=== PATIENT | male | born 1995 | race African-American/Black ===

== ENCOUNTER 2016-04-07 08:58 | Emergency (ER) | payer OTHER ==
[2016-04-07] MEDS ORDERED: NORCO, ANEXSIA 5/325MG TABLET (HYDROcodone/ACETAMINOPHEN) As Ordered ONE (09:16)
--- NOTE | 2016-04-07 09:46 | REP ---
Clinical: Trauma. Technique: AP, lateral, bilateral oblique views right foot. Findings: The osseous structures and joint spaces are intact and normal. There is no evidence for acute fracture or dislocation. Surrounding soft tissues are unremarkable. No subcutaneous emphysema or radiodense foreign body. Impression: Normal examination. No acute fracture or dislocation. Signed by Orlando Solis MD 04/07/2016 09:37 A
--- NOTE | 2016-04-07 10:10 | EDDOCDS ---
Physician Documentation [facility] Name: Osmar Pinto Age: 20 yrs Sex: Male : 1995 Arrival Date: 04/07/2016 Time: 08:58 Bed PR Private MD: OKPRINCE RINCON Disposition: 04/07/16 10:02 Discharged to Home/Self Care. Impression: Contusion of right foot. - Condition is Stable. - Discharge Instructions: Foot Contusion. - Prescriptions for Naprosyn 500 mg Oral Tablet - take 1 tablet by ORAL route 2 times per day take with food; 30 tablet. - Medication Reconciliation form. - [facility]: Tomorrow; Reason: Wound/Symptom Recheck, Recheck today's complaints, Worsening of conditions, Continuance of care. - Problem is new. - Symptoms have improved. Historical: - Allergies: No known drug Allergies; - Home Meds: 1. none - PMHx: none; - PSHx: none; - Social history: Smoking status: Patient states was never smoker of tobacco. No barriers to communication noted, The patient speaks fluent Sinhala. - Family history: Not pertinent. - : The pt / caregiver states he / she is not on anticoagulants. Home medication list is obtained from the patient. - Exposure Risk Screening:: None identified. Vital Signs: 04/07 09:00 BP 151 / 82; Pulse 85; Resp 18; Temp 97.8(O); Pulse Ox 98% on R/A; Weight 102.06 kg / ct3 225 lbs (R); Height 6 ft. 0 in. (182.88 cm) (R); Pain 5/10; 09:00 Body Mass Index 30.52 (102.06 kg, 182.88 cm) ct3 MDM: 09:13 HYDROcodone-acetaminophen 5 mg-325 mg 1 tabs PO once ordered. cc10 09:14 Foot, Complete: car over foot Ordered. EDMS 09:36 Financial registration complete. mm15 10:06 [facility] Payment Agreement was scanned into [employer] and attached to record. mm15 Administered Medications: 09:20 Drug: HYDROcodone-acetaminophen 1 tabs [hydrocodone 5 mg-acetaminophen 325 mg tablet (1 kcs tabs)] Route: PO; 09:20 Follow up: Response: Confirmed pt not driving. kcs Signatures: Dispatcher [employer] Yohana Duque RN RN kcs Fuller, Desiree, RN RN dsf McGrath, Marlynn mm15 Severiano Cunha PA-C PA-C cc10 The chart was reviewed and I authenticate all verbal orders and agree with the evaluation and treatment provided.Attachments: 10:06 [facility] Payment Agreement mm15 MTDD
--- NOTE | 2016-04-07 10:10 | EDDOCDS ---
Nurse's Notes [facility] Name: Osmar Pinto Age: 20 yrs Sex: Male : 1995 Arrival Date: 04/07/2016 Time: 08:58 Bed PR Private MD: PRINCE HARVEY Diagnosis: Contusion of right foot Presentation: 04/07 09:03 Presenting complaint: Patient states: he was shoveling this am around his car and when kcs they were rocking the car the tire went over his right foot. Adult Sepsis Screening: The patient does not have new or worsening altered mentation. Patient's respiratory rate is less than 22. Systolic blood pressure is greater than 100. Patient has a qSOFA score of 0- Negative Sepsis Screen. Suicide/Homicide risk assessment- the patient denies having any suicidal and/or homicidal ideations and does not present with any other emotional, behavioral or mental health complaints. 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 Transition of care: patient was not received from another setting of care. 09:03 Acuity: ROSEMARIE Level 4 kcs 09:03 Method Of Arrival: Walkin/Carried/Asstd kcs Triage Assessment: 09:04 General: Appears comfortable, well developed, well nourished, well groomed, Behavior is kcs cooperative, pleasant. Pain: Location: right foot Pain currently is 5 out of 10 on a pain scale. 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 Neurological: Level of Consciousness is awake, alert. Respiratory: Airway is patent Respiratory effort is even, unlabored, Respiratory pattern is regular, symmetrical. Derm: Skin is intact, is healthy with good turgor, Skin is dry, Skin is black. Historical: - Allergies: No known drug Allergies; - Home Meds: 1. none - PMHx: none; - PSHx: none; - Social history: Smoking status: Patient states was never smoker of tobacco. No barriers to communication noted, The patient speaks fluent Turkish. - Family history: Not pertinent. - : The pt / caregiver states he / she is not on anticoagulants. Home medication list is obtained from the patient. - Exposure Risk Screening:: None identified. Screenin:08 Screening information is obtained from the patient. Fall risk: No risks identified. dsf Assistance ADL's: requires no assistance with activities of daily living. Abuse/DV Screen: The patient / caregiver reports he/she is: not in a situation that causes fear, pain or injury. Nutritional screening: No deficits noted. Advance Directives: Currently, there is no health care proxy. home support is adequate. Assessment: 09:07 Reassessment: right foot no obvious bony deformity or swelling noted - pain lateral kcs side of right foot - strong pedal pulse and CSM intact.. 10:08 General: Appears in no apparent distress, Behavior is appropriate for age, cooperative. dsf Pain: Location: right foot Pain currently is 4 out of 10 on a pain scale. Neurological: Level of Consciousness is awake, alert. Cardiovascular: No deficits noted. Respiratory: No deficits noted. Derm: Skin is pink, warm & dry. Musculoskeletal: Circulation, motion, and sensation intact. Vital Signs: 09:00 BP 151 / 82; Pulse 85; Resp 18; Temp 97.8(O); Pulse Ox 98% on R/A; Weight 102.06 kg ct3 (R); Height 6 ft. 0 in. (182.88 cm) (R); Pain 5/10; 09:00 Body Mass Index 30.52 (102.06 kg, 182.88 cm) ct3 Vitals: 09:00 Log In Time: April 07, 2016 at 08:57. ct3 ED Course: 08:59 Patient visited by Minnie Glaser PCA. ct3 08:59 Patient moved to Waiting ct3 09:00 [facility]. ct3 09:01 Patient moved to Pre RCE ct3 09:04 Triage Initiated kcs 09:06 Patient moved to Triage 2 kcs 09:09 Severiano Cunha PA-C is PHCP. cc10 09:09 Job Whatley MD is Attending Physician. cc10 09:10 Patient visited by Severiano Cunha PA-C. cc10 09:10 Patient visited by Severiano Cunha PA-C. cc10 09:21 Patient moved to TR1 kcs 09:54 Foot, Complete: car over foot Returned. EDMS 10:02 [facility] Referral Phys[facility]. cc10 10:04 Patient moved to PR2 / 26 kcs 10:06 [facility] Payment Agreement was scanned into [email or web address] and attached to record. mm15 10:08 The patient / caregiver is instructed regarding the plan of care and ED course. dsf 10:08 No IV's were initiated during this patient's visit. No procedures done that require dsf assistance. Administered Medications: 09:20 Drug: HYDROcodone-acetaminophen 1 tabs [hydrocodone 5 mg-acetaminophen 325 mg tablet (1 kcs tabs)] Route: PO; 09:20 Follow up: Response: Confirmed pt not driving. kcs Order Results: Radiology Order: Foot, Complete: car over foot Test: Foot, Complete: car over foot REASON FOR EXAMINATION: Trauma; Clinical: Trauma.; ; Technique: AP, lateral, bilateral oblique views right foot.; ; Findings: The osseous structures and joint spaces are intact and normal. There; is no evidence for acute fracture or dislocation. Surrounding soft tissues are; unremarkable. No subcutaneous emphysema or radiodense foreign body.; ; Impression:; Normal examination. No acute fracture or dislocation.; ; ; Signed by; Orlando Solis MD 04/07/2016 09:37 A; Outcome: 10:02 Discharge ordered by Provider. cc10 10:08 Discharge Assessment: Patient awake, alert and oriented x 3. No cognitive and/or dsf functional deficits noted. Patient verbalized understanding of disposition instructions. patient administered narcotics - no. The following High Risk Discharge criteria are identified: None. Discharged to home ambulatory. Condition: stable. Discharge instructions given to patient, Instructed on discharge instructions, follow up and referral plans. medication usage, Rest, Ice, Compression and Elevation. Demonstrated understanding of instructions, medications, Pt was receptive of discharge instructions/ teaching. Prescriptions given X 1. No special radiology studies were completed. Property sent home with patient. 10:09 Patient left the ED. dsf Signatures: Dispatcher [employer] Yohana Duque, RN RN Minnie Wilson, SUPERVISOR CUSTOMER SERVICES SUPERVISOR CUSTOMER SERVICES ct3 Zahira Darden RN RN dsf Farshad Beebe mm15 Severiano Cunha, PA-C PA-C cc10 MTDD
--- NOTE | 2016-04-09 11:10 | EDDOCDS ---
Nurse's Notes [facility] Name: Osmar Pinto Age: 20 yrs Sex: Male : 1995 Arrival Date: 04/07/2016 Time: 08:58 Bed PR Private MD: PRINCE HARVEY Diagnosis: Contusion of right foot Presentation: 04/07 09:03 Presenting complaint: Patient states: he was shoveling this am around his car and when kcs they were rocking the car the tire went over his right foot. Adult Sepsis Screening: The patient does not have new or worsening altered mentation. Patient's respiratory rate is less than 22. Systolic blood pressure is greater than 100. Patient has a qSOFA score of 0- Negative Sepsis Screen. Suicide/Homicide risk assessment- the patient denies having any suicidal and/or homicidal ideations and does not present with any other emotional, behavioral or mental health complaints. 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 Transition of care: patient was not received from another setting of care. 09:03 Acuity: ROSEMARIE Level 4 kcs 09:03 Method Of Arrival: Walkin/Carried/Asstd kcs Triage Assessment: 09:04 General: Appears comfortable, well developed, well nourished, well groomed, Behavior is kcs cooperative, pleasant. Pain: Location: right foot Pain currently is 5 out of 10 on a pain scale. 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 Neurological: Level of Consciousness is awake, alert. Respiratory: Airway is patent Respiratory effort is even, unlabored, Respiratory pattern is regular, symmetrical. Derm: Skin is intact, is healthy with good turgor, Skin is dry, Skin is black. Historical: - Allergies: No known drug Allergies; - Home Meds: 1. none - PMHx: none; - PSHx: none; - Social history: Smoking status: Patient states was never smoker of tobacco. No barriers to communication noted, The patient speaks fluent Korean. - Family history: Not pertinent. - : The pt / caregiver states he / she is not on anticoagulants. Home medication list is obtained from the patient. - Exposure Risk Screening:: None identified. Screenin:08 Screening information is obtained from the patient. Fall risk: No risks identified. dsf Assistance ADL's: requires no assistance with activities of daily living. Abuse/DV Screen: The patient / caregiver reports he/she is: not in a situation that causes fear, pain or injury. Nutritional screening: No deficits noted. Advance Directives: Currently, there is no health care proxy. home support is adequate. Assessment: 09:07 Reassessment: right foot no obvious bony deformity or swelling noted - pain lateral kcs side of right foot - strong pedal pulse and CSM intact.. 10:08 General: Appears in no apparent distress, Behavior is appropriate for age, cooperative. dsf Pain: Location: right foot Pain currently is 4 out of 10 on a pain scale. Neurological: Level of Consciousness is awake, alert. Cardiovascular: No deficits noted. Respiratory: No deficits noted. Derm: Skin is pink, warm & dry. Musculoskeletal: Circulation, motion, and sensation intact. Vital Signs: 09:00 BP 151 / 82; Pulse 85; Resp 18; Temp 97.8(O); Pulse Ox 98% on R/A; Weight 102.06 kg ct3 (R); Height 6 ft. 0 in. (182.88 cm) (R); Pain 5/10; 09:00 Body Mass Index 30.52 (102.06 kg, 182.88 cm) ct3 Vitals: 09:00 Log In Time: April 07, 2016 at 08:57. ct3 ED Course: 08:59 Patient visited by Minnie Glaser PCA. ct3 08:59 Patient moved to Waiting ct3 09:00 [facility]. ct3 09:01 Patient moved to Pre RCE ct3 09:04 Triage Initiated kcs 09:06 Patient moved to Triage 2 kcs 09:09 Severiano Cunha PA-C is PHCP. cc10 09:09 Job Whatley MD is Attending Physician. cc10 09:10 Patient visited by Severiano Cunha PA-C. cc10 09:10 Patient visited by Severiano Cunha PA-C. cc10 09:21 Patient moved to TR1 kcs 09:54 Foot, Complete: car over foot Returned. EDMS 10:02 [facility]. cc10 10:04 Patient moved to PR2 / 26 kcs 10:06 [facility] Payment Agreement was scanned into [employer] and attached to record. mm15 10:08 The patient / caregiver is instructed regarding the plan of care and ED course. dsf 10:08 No IV's were initiated during this patient's visit. No procedures done that require dsf assistance. 04/08 11:15 T-Sheet-- Draft Copy was scanned into [employer] and attached to record. gb Administered Medications: 04/07 09:20 Drug: HYDROcodone-acetaminophen 1 tabs [hydrocodone 5 mg-acetaminophen 325 mg tablet (1 kcs tabs)] Route: PO; 09:20 Follow up: Response: Confirmed pt not driving. kcs Order Results: Radiology Order: Foot, Complete: car over foot Test: Foot, Complete: car over foot REASON FOR EXAMINATION: Trauma; Clinical: Trauma.; ; Technique: AP, lateral, bilateral oblique views right foot.; ; Findings: The osseous structures and joint spaces are intact and normal. There; is no evidence for acute fracture or dislocation. Surrounding soft tissues are; unremarkable. No subcutaneous emphysema or radiodense foreign body.; ; Impression:; Normal examination. No acute fracture or dislocation.; ; ; Signed by; Orlando Solis MD 04/07/2016 09:37 A; Outcome: 10:02 Discharge ordered by Provider. cc10 10:08 Discharge Assessment: Patient awake, alert and oriented x 3. No cognitive and/or dsf functional deficits noted. Patient verbalized understanding of disposition instructions. patient administered narcotics - no. The following High Risk Discharge criteria are identified: None. Discharged to home ambulatory. Condition: stable. Discharge instructions given to patient, Instructed on discharge instructions, follow up and referral plans. medication usage, Rest, Ice, Compression and Elevation. Demonstrated understanding of instructions, medications, Pt was receptive of discharge instructions/ teaching. Prescriptions given X 1. No special radiology studies were completed. Property sent home with patient. 10:09 Patient left the ED. dsf Signatures: Dispatcher [employer] EDMS Yohana Francisco, SOPHIE RN Chandrika Alonzo, Reg Reg gb Minnie Glaser, AUDITING MANAGER AUDITING MANAGER ct3 Zahira Darden RN RN dsf Farshad Beebe mm15 Severiano Cunha, PA-C PA-C cc10 Chart Complete MTDD
--- NOTE | 2016-04-09 11:10 | EDDOCDS ---
Physician Documentation [facility] Name: Osmar Pinto Age: 20 yrs Sex: Male : 1995 Arrival Date: 04/07/2016 Time: 08:58 Bed PR [facility] Disposition: 04/07/16 10:02 Discharged to Home/Self Care. Impression: Contusion of right foot. - Condition is Stable. - Discharge Instructions: Foot Contusion. - Prescriptions for Naprosyn 500 mg Oral Tablet - take 1 tablet by ORAL route 2 times per day take with food; 30 tablet. - Medication Reconciliation form. - [facility]; When: Tomorrow; Reason: Wound/Symptom Recheck, Recheck today's complaints, Worsening of conditions, Continuance of care. - Problem is new. - Symptoms have improved. Historical: - Allergies: No known drug Allergies; - Home Meds: 1. none - PMHx: none; - PSHx: none; - Social history: Smoking status: Patient states was never smoker of tobacco. No barriers to communication noted, The patient speaks fluent Uzbek. - Family history: Not pertinent. - : The pt / caregiver states he / she is not on anticoagulants. Home medication list is obtained from the patient. - Exposure Risk Screening:: None identified. Vital Signs: 04/07 09:00 BP 151 / 82; Pulse 85; Resp 18; Temp 97.8(O); Pulse Ox 98% on R/A; Weight 102.06 kg / ct3 225 lbs (R); Height 6 ft. 0 in. (182.88 cm) (R); Pain 5/10; 09:00 Body Mass Index 30.52 (102.06 kg, 182.88 cm) ct3 MDM: 09:13 HYDROcodone-acetaminophen 5 mg-325 mg 1 tabs PO once ordered. cc10 09:14 Foot, Complete: car over foot Ordered. EDMS 09:36 Financial registration complete. mm15 10:06 [facility] Payment Agreement was scanned into [employer] and attached to record. mm15 04/08 11:15 T-Sheet-- Draft Copy was scanned into [employer] and attached to record. gb Administered Medications: 04/07 09:20 Drug: HYDROcodone-acetaminophen 1 tabs [hydrocodone 5 mg-acetaminophen 325 mg tablet (1 kcs tabs)] Route: PO; 09:20 Follow up: Response: Confirmed pt not driving. kcs Signatures: Dispatcher [employer] Yohana Duque, RN RN Chandrika Alonzo, Reg Reg Zahira Garcia RN RN dsFarshad Dockery mm15 Severiano Cunha, PAKwameC PAKwameC cc10 The chart was reviewed and I authenticate all verbal orders and agree with the evaluation and treatment provided.Attachments: 10:06 [facility] Payment Agreement mm15 04/08 11:15 T-Sheet-- Draft Copy gb Chart Complete MTDD
--- NOTE | 2016-04-09 11:10 | EDDOCDS ---
[facility]ation [facility]: Osmar Pinto Age: 20 yrs Sex: Male : 1995 Arrival Date: 04/07/2016 Time: 08:58 Bed PR [facility] Disposition: 04/07/16 10:02 Discharged to Home/Self Care. Impression: Contusion of right foot. - Condition is Stable. - Discharge Instructions: Foot Contusion. - Prescriptions for Naprosyn 500 mg Oral Tablet - take 1 tablet by ORAL route 2 times per day take with food; 30 tablet. - Medication Reconciliation form. - [facility]; When: Tomorrow; Reason: Wound/Symptom Recheck, Recheck today's complaints, Worsening of conditions, Continuance of care. - Problem is new. - Symptoms have improved. Historical: - Allergies: No known drug Allergies; - Home Meds: 1. none - PMHx: none; - PSHx: none; - Social history: Smoking status: Patient states was never smoker of tobacco. No barriers to communication noted, The patient speaks fluent Sami. - Family history: Not pertinent. - : The pt / caregiver states he / she is not on anticoagulants. Home medication list is obtained from the patient. - Exposure Risk Screening:: None identified. Vital Signs: 04/07 09:00 BP 151 / 82; Pulse 85; Resp 18; Temp 97.8(O); Pulse Ox 98% on R/A; Weight 102.06 kg / ct3 225 lbs (R); Height 6 ft. 0 in. (182.88 cm) (R); Pain 5/10; 09:00 Body Mass Index 30.52 (102.06 kg, 182.88 cm) ct3 MDM: 09:13 HYDROcodone-acetaminophen 5 mg-325 mg 1 tabs PO once ordered. cc10 09:14 Foot, Complete: car over foot Ordered. EDMS 09:36 Financial registration complete. mm15 10:06 [facility] Payment Agreement was scanned into [employer] and attached to record. mm15 04/08 11:15 T-Sheet-- Draft Copy was scanned into [employer] and attached to record. gb Administered Medications: 04/07 09:20 Drug: HYDROcodone-acetaminophen 1 tabs [hydrocodone 5 mg-acetaminophen 325 mg tablet (1 kcs tabs)] Route: PO; 09:20 Follow up: Response: Confirmed pt not driving. kcs Signatures: Dispatcher [employer] Yohana Duque, RN RN Chandrika Alonzo, Reg Reg Zahira Garcia RN RN dsFarshad Dockery mm15 Severiano Cunha, PAKwameC PAKwameC cc10 The chart was reviewed and I authenticate all verbal orders and agree with the evaluation and treatment provided.Attachments: 10:06 [facility] Payment Agreement mm15 04/08 11:15 T-Sheet-- Draft Copy gb Chart Complete MTDD
== END 2016-04-07 10:09 | disposition home or self-care (01) ==
LOC: M ED 08:58
DX: S90.31XA Contusion of right foot, initial encounter (principal); V09.9XXA Pedestrian injured in unspecified transport accident, initial encounter; Y92.018 Other place in single-family (private) house as the place of occurrence of the external cause; Y93.89 Activity, other specified; Y99.8 Other external cause status